=== PATIENT | female | born 1965 | race Caucasian/White ===

== ENCOUNTER 2018-04-01 10:01 | Day surgery (SDC) | payer BC ==
[2018-04-01 10:52] VITALS: BMI 26.3
[2018-04-01] MEDS ORDERED: MIDAZOLAM HCL 2 MG/2 ML SINGLE DOSE VIAL ONE (12:59)
[2018-04-01] MEDS ORDERED: BUPIVACAINE HCL/PF 2.5 MG/ML - 30 ML VIAL IJ ONE (13:13)
[2018-04-01] MEDS ORDERED: ONDANSETRON 4 MG/2 ML VIAL ONE (13:30)
[2018-04-01] MEDS ORDERED: DEXAMETHASONE SOD PHOSPHATE 4 MG/1 ML VIAL ONE (13:30)
[2018-04-01] MEDS ORDERED: PROPOFOL 20 ML ONE (13:31)
[2018-04-01] MEDS ORDERED: ceFAZolin SODIUM 1 GM VIAL ONE (13:34)
[2018-04-01] MEDS ORDERED: BUPIVACAINE HCL/PF 0.25% (2.5MG/ML) 10 ML VIAL IJ ONE (14:06)
[2018-04-01] MEDS ORDERED: oxyCODONE HCL 5 MG TABLET PO PRN (14:24)
[2018-04-01] MEDS ORDERED: ONDANSETRON 4 MG/2 ML VIAL IVPUSH PRN (14:24)
[2018-04-01] MEDS ORDERED: LACTATED RINGERS SOLUTION 1,000 ML IV SCH (14:30)
[2018-04-01 15:26] VITALS: TEMP 97.9
--- NOTE | 2018-04-01 16:00 | OP ---
DATE OF OPERATION: 04/01/2018 SURGEON: Geoff Koroma M.D. CARTON GLUING MACHINE OPERATOR: Vahe Green PREOPERATIVE DIAGNOSIS: 1. Left knee medial lateral meniscal tear. 2. Left knee cartilage injury. 3. Left knee synovitis. POSTOPERATIVE DIAGNOSIS: 1. Left knee medial lateral meniscal tear. 2. Left knee cartilage injury. 3. Left knee synovitis. PROCEDURE: 1. Left knee arthroscopy, partial meniscectomy medial and lateral meniscus. CPT code 63843. 2. Left knee arthroscopy with chondroplasty and abrasion plasty. CPT code 29494. 3. Left knee arthroscopy synovectomy. CPT code 53878. FINDINGS: 1. Medial meniscus body and posterior horn tear. 2. Lateral meniscus posterior horn tear. 3. Synovitis patellofemoral medial lateral notch area. 4. grade 1 to 2 cartilage injury medial joint line. 5. ACL and PCL intact. 6. Anterior grade 2-3 cartilage injury medial portion of lateral tibial plateau. 7. Central grade 2-3 cartilage injury anterior patella with grade 2-4 changes posterior patella and central 2-4 changes in patellofemoral trochlea. PROCEDURE: Informed consent was obtained. The patient came to the operating room, where the lower extremity was prepped and draped in a sterile fashion. A tourniquet was placed on the upper thigh, but not inflated. Using standard arthroscopic technique, a lateral incision and portal was made to allow for introduction of the camera into the suprapatellar bursa. This was then taken to the medial joint line, where under direct visualization, a medial incision and portal was made. Excessive synovium noted in the medial, lateral and patellofemoral and notch area was removed by an upbiter, shaver and Bovie cautery. This was found to bring in inflammatory tissue into the joint surface, a source of pain and dysfunction. Probing of the medial and lateral meniscus found tears, as described in the findings. These were removed with the upbiter and shaver and taken back to a stable rim. Grade 2 to 3 degenerative changes were treated with a chondroplasty, removing all flaking surfaces with low-setting Bovie along the periphery to prevent further flaking. Grade 4 changes, as noted, were treated with an abrasoplasty, creating a bleeding surface at the bone/cartilage interface. Aggressive debridement with shaver/eva created bleeding surface. Micro fracture also done when indicated in findings. All areas of the knee were once again reexamined. The knee was then drained and a single suture was placed in all portals. A sterile dressing was placed and the patient was transferred to the recovery room without complication. The PA listed above was present and assisted at surgery. Their presence was absolutely medically necessary for the completion of the procedure. They helped hold the arthroscopy, pass instruments (and implants when indicated) and the procedure could not have been completed without their assistance. GEOFF KOROMA M.D. [id number]
[2018-04-01 16:16] VITALS: BP 128/72; PULSE 86
--- NOTE | 2018-04-05 17:27 | PATH ---
Surgical Pathology Report Patient Name: LUCAS VILLASENOR Med. Rec. #: [id number] /Age/Gender: 1965 (Age: 52) / F Account: [id number] Location: [facility] AMBULATORY Taken: 04/01/2018 Received: 04/01/2018 Reported: 04/05/2018 Physicians: Geoff Suh M.D. Specimen(s) Received LEFT KNEE SHAVINGS Clinical History Derangement left knee Final Diagnosis KNEE SHAVINGS, LEFT, ARTHROSCOPY: FRAGMENTS OF CARTILAGE, DENSE FIBROCONNECTIVE TISSUE, ADIPOSE TISSUE, AND REACTIVE SYNOVIUM. Electronically Signed Shiloh Perez M.D. Gross Description Received in formalin, labeled "left knee shavings," is a 4.0 x 3.5 x 0.3 cm. aggregate of hamilton-yellow soft tissue fragments. A inside outside sales representative portion is submitted in one cassette. /04/04/2018 saudi04/04/2018
== END 2018-04-01 16:25 | disposition home or self-care (01) ==
LOC: FASU 10:01
PROVIDERS: ATTEND Orthopaedic Surgery
PROC: 0SBD4ZZ Excision of Left Knee Joint, Percutaneous Endoscopic Approach (ICD-10-PCS; 2018-04-01)
PROC: 0SBD4ZZ Excision of Left Knee Joint, Percutaneous Endoscopic Approach (ICD-10-PCS; 2018-04-01)
PROC: 0SBD4ZZ Excision of Left Knee Joint, Percutaneous Endoscopic Approach (ICD-10-PCS; principal; 2018-04-01 11:30)
DX: S83.242A Other tear of medial meniscus, current injury, left knee, initial encounter (principal); S83.282A Other tear of lateral meniscus, current injury, left knee, initial encounter; S83.8X2A Sprain of other specified parts of left knee, initial encounter; M65.862 Other synovitis and tenosynovitis, left lower leg; X58.XXXA Exposure to other specified factors, initial encounter; Y93.9 Activity, unspecified; Y92.9 Unspecified place or not applicable
CPT/HCPCS: 88304-TC; 94760